=== PATIENT | female | born 1945 | race Caucasian/White ===

== ENCOUNTER 2023-06-11 20:02 | Emergency (ER) | payer MEDICARE, SELFPAY ==
[2023-06-11 20:04] VITALS: BP 131/47; BMI 28.0
[2023-06-11 20:11] VITALS: BP 131/47
[2023-06-11 20:18] LABS: Glucose - Point of Care 121 mg/dl (70-99)
[2023-06-11 20:25] LABS: % Basophils 0.6 % (0-2); % Eosinophils 1.7 % (0-6); % Immature Granulocytes 0.4 % (0-0.5); % Lymphocytes 25.3 % (20.5-51.1); % Monocytes 5.6 % (1.7-9.3); % Neutrophils 66.4 % (42.2-75.2); Absolute Basophils 0.1 10^3/uL (0-0.2); Absolute Eosinophils 0.1 10^3/uL (0-0.7); Absolute Lymphocytes 2.1 10^3/uL (1.2-3.4); Absolute Monocytes 0.5 10^3/uL (0.1-0.6); Absolute Neutrophils 5.6 10^3/uL (1.4-6.5); Hematocrit 41.4 % (37.0-47.0); Hemoglobin 13.4 g/dL (12.0-16.0); Mean Corp Hgb Conc. 32.4 g/dL (33.0-37.0); Mean Corpuscular Hgb 29.4 pg (27.0-31.0); Mean Corpuscular Volume 90.8 fL (81.0-99.0); Mean Platelet Volume 10.4 fL (7.4-10.4); Nucleated Red Blood Cells % 0 %; Platelet Count 206 10^3/uL (130-400); Red Blood Cell Count 4.56 10^6/uL (4.20-5.40); Red Cell Dist. Width 13.7 % (11.5-14.5); White Blood Cell Count 8.4 10^3/uL (4.8-10.8)
[2023-06-11 20:43] LABS: ALT (SGPT) 18 U/L (0-35); AST (SGOT) 25 U/L (14-36); Albumin 4.3 g/dl (3.5-5.0); Alkaline Phosphatase 69 U/L (38-126); Blood Urea Nitrogen 22 mg/dl (7-17); Calcium 9.7 mg/dl (8.4-10.2); Carbon Dioxide 25 mmol/L (22-30); Chloride 103 mmol/L (98-107); Estimated Creatinine Clearance 52 ml/min; Glucose 132 mg/dl (70-99); Lipase 184 U/L (23-300); Potassium 3.7 mmol/L (3.5-5.1); Sodium 136 mmol/L (135-145); Total Bilirubin 0.5 mg/dl (0.2-1.3); Total Protein 6.8 g/dl (6.3-8.2); eGFR > 60.00
[2023-06-11 20:48] LABS: Troponin I < 0.012 ng/ml
[2023-06-11 21:00] VITALS: BP 147/74
[2023-06-11 22:00] VITALS: BP 129/59
[2023-06-11] MEDS: NSS 1000 IV (22:16)
--- NOTE | 2023-06-11 22:22 | ED.GENMED ---
History of Present Illness
General
Chief Complaint: Fainting/Passed Out
Source: patient and family
Exam Limitations: none
Time Seen by Provider: 06/11/23 20:43
Nursing documentation reviewed up to this point in time: agreed with
Travel History
Have you had any contact with someone who has COVID-19?: No
Do you have any symptoms of coronavirus? Fever > 100 degrees, chills, cough, shortness of breath, sore throat, loss of taste or smell, muscle aches, or headache?: No
History of Present Illness
History of Present Illness:
77-year-old female presents with a syncopal event she was at dinner with family the [employer] restaurant sitting down felt an urge to move her bowels went to the restroom numerous watery bowel movements and then vomited intermittently passed out a few
times, did not strike her head is now feeling better, no chest pain or shortness of breath
She felt fine prior to going to the restaurant no alcohol, no one else was sick,
Past History
Past History
ED Past Medical History: Cancer and Hypothyroidism
Social History
Tobacco: Non-smoker
Alcohol: None
Drug: None
Personal: Single
Living: alone
Employment: Retired
Review of Systems
Review of Systems
All Other Systems: Not applicable
Constitutional: Denies fever or fatigue
EENT: Reports no symptoms
Respiratory: Reports no symptoms
Cardiac: Reports syncope
ABD/GI: Reports nausea, vomiting and diarrhea; Denies abdominal pain
: Reports no symptoms
Musculoskeletal: Reports no symptoms
Skin: Reports no symptoms
Neurological: Reports no symptoms
Endocrine: Reports no symptoms
Phy Exam
Physical Exam
Physical Exam:
Physical Exam
General: no apparent distress, not acutely ill
Neck: supple. no meningeal signs. normal psoterior pharynx
Heart: s1/s2 regular rate and rhythm, no murmur. equal radial pulses.
Lungs: no acute respiratory distress. clear bilaterally
Abdomen: normal bowel sounds. not tender. no CVAT
Neuro: alert and oriented. no focal neurological deficits
Skin: no rash
Psychiatric: well kept. interactive and cooperative
Extremities: no edema. no calf tenderness. negative homans. good distal pulses
Course
Orders/Labs/Results
Orders:
Orders
06/11/23 20:04
EKG [Electrocardiogram (*1)] Urgent
Reason for Study: Syncope
EKG- Treatment ONCE
06/11/23 20:17
CBC/With Diff [Complete Blood Count/With Diff] Urgent
CMP [Comprehensive Metabolic Panel] Urgent
Glycohemoglobin (HgbA1c) Urgent
Lipase Urgent
Troponin I Urgent
06/11/23 22:12
0.9% Sodium Chloride 1000 ml [Nss] 1,000 ml IV BOLUS
06/11/23 22:19
Add On- LAB Urgent
Tests Added?: hemoglobin a1c
Abnormal Lab Results
06/11/23 06/11/23
20:16 20:17
MCHC 32.4 L g/dL
(33.0-37.0)
BUN 22 H mg/dl
(7-17)
Glucose 132 H mg/dl
(70-99)
POC Glucose 121 H mg/dl
(70-99)
06/11/23 20:17
06/11/23 20:17
Vital Signs
Initial and Last Documented VS:
Initial Vital Signs
Temp Pulse Resp BP Pulse Ox
97.7 F 53 18 131/47 100
06/11/23 20:04 06/11/23 20:04 06/11/23 20:04 06/11/23 20:04 06/11/23 20:04
Last Documented Vital Signs
Temp Pulse Resp BP Pulse Ox
97.7 F 64 17 129/59 98
06/11/23 20:04 06/11/23 22:15 06/11/23 22:15 06/11/23 22:00 06/11/23 22:15
MDM/Problems Addressed
Differential Diagnosis Includes:
Dehydration vasovagal electrolyte abnormality doubt arrhythmia denies any head
MDM/Problems Addressed:
Syncope nausea vomiting diarrhea
*Pulse Oximetry
Patient hypoxic: no
*EKG
Interpreted by ED Provider?: Yes
Interpretation: normal
Comparison EKG: no comparison EKG present
Heart Rate: 78
Rate: normal
Rhythm: sinus
Ischemia: no ischemia
*Multi Care Technician Interpretation
Rate: normal
Interpretation: normal
Heart Rate: 78
Rhythm: sinus
*Critical Care Note
Total Time (30-74mins, 75-104mins- exclusive of procedures): Not Applicable
Update Note
Update Note:
Update patient well-appearing, symptoms appear due to enteritis or food poisoning perhaps norovirus she looks better now she is sinus rhythm start saline hydration labs and EKG are noted
ED Attending Note
-
Portions of this chart may have been created with voice recognition software.� Occasional wrong word or��sound alike� substitutions may have occurred due to the inherent limitations of voice recognition software.
Discharge Plan
Departure
Patient Disposition: Home (Routine Discharge)
Date of Disposition: 06/11/23
Time of Disposition: 22:49
Patient with high blood pressure during this ER visit?: No
Condition: Good
Discharge Problem:
Vomiting and diarrhea
Instructions: Syncope (fainting), Syncope (Fainting) (DC)
Prescriptions:
New
ondansetron 4 mg tablet,disintegrating
4 mg PO Q8H PRN (Reason: nausea and vomiting) Qty: 10 0RF
loperamide [Imodium A-D] 2 mg tablet
2 mg PO Q4H PRN (Reason: loose stool) Qty: 10 0RF
No Action
atorvastatin 40 mg Tablet
40 mg PO QPM
anastrozole 1 mg Tablet
1 mg PO DAILY
levothyroxine [Unithroid] 75 mcg Tablet
75 mcg PO SUSA
levothyroxine [Unithroid] 88 mcg Tablet
88 mcg PO MOTUWETHFR
calcium carbonate [Calcium 500] 500 mg calcium (1,250 mg) Tablet
500 mg PO NOON
losartan 100 mg Tablet
100 mg PO DAILY
cholecalciferol (vitamin D3) [Vitamin D3] 25 mcg (1,000 unit) Tablet
25 mcg PO NOON
Prolia 60 mg/mL Syringe
60 mg SC [id number]
Referrals:
UNKNOWN - PT DOES,NOT KNOW [Family Provider] -
Interventions
Interventions:
*Risk Screen - Suicide Last Done: 06/11/23 20:04
*General Assessment Last Done: 06/11/23 20:04
*Neglect/Abuse Screening Last Done: 06/11/23 20:04
ED- Fall Risk Assessment Last Done: 06/11/23 20:23
*ED COVID-19 Vaccine History Last Done: 06/11/23 20:04
ED- Cardiac Assessment Last Done: 06/11/23 20:23
ED- Neurological Assessment Last Done: 06/11/23 20:23
Discharge Date and Time
Print Language: SLOVENIAN
[2023-06-11 23:39] VITALS: BP 158/60
[2023-06-12 08:44] LABS: Glycohemoglobin (HgbA1c) 6.1 % (4.0-5.6)
== END 2023-06-12 00:09 | disposition home or self-care (01) ==
LOC: EMR 20:02
PROVIDERS: Emergency Medicine; EMERGENCY PHYSICIAN Emergency Medicine
DX: R11.2 Nausea with vomiting, unspecified (principal); R19.7 Diarrhea, unspecified
CPT/HCPCS: 99284; 96360; 80053; 82962; 83036; 83690; 84484; 85025; 93005